=== PATIENT | female | born 1985 | race Hispanic/Latino ===

== ENCOUNTER → 2019-09-13 11:43 | Outpatient (CLI) | payer OTHER, SELFPAY | PROVIDERS: PCP Family Medicine; Referring Provider Family Medicine; Visit Provider Family Medicine | DX: Z03.818 Encounter for observation for suspected exposure to other biological agents ruled out (principal); Z20.828 Contact with and (suspected) exposure to other viral communicable diseases | CPT/HCPCS: 87633; 87635; 94799; G2023; U0004 ==